=== PATIENT | male | born 1970 ===

== ENCOUNTER 2022-01-29 19:33 | Emergency (ER) | payer OTHER, SELFPAY ==
--- NOTE | 2022-01-29 19:30 | DI.CT_ITS ---
Exam(s) CT CHEST/ABD/PEL W CT THORACIC LUMBAR SPINE REC EXAM: CT CHEST/ABD/PEL W TECHNIQUE: CT examination of the chest, abdomen, and pelvis was performed with bolus infusion of 100 cc of Omnipaque 350. Additional thoracic and lumbar spine bony reconstructions were also obtained. COMPARISON: CT CT THORACIC LUMBAR SPINE REC from 01/29/2022 FINDINGS: There is no evidence of a thoracic vascular injury. The lungs are clear. No pneumothorax or pleural effusion. No mediastinal hematoma. No adenopathy in the chest. Tracheobronchial tree appears intact. Note is made of a prior sternotomy and surgery involving the proximal pulmonary artery which is marke dly dilated. Please correlate with surgical history. The liver, spleen, and pancreas appear normal. Gallbladder and bile ducts are normal. Adrenals and kidneys are unremarkable. No evidence of urinary tract injury or obstruction. No abdominal or pelvic vascular injury seen. No abdominal or pelvic adenopathy. No significant abdomi nal wall hernia or hematoma. No evidence of bowel injury. No fracture identified in the region surveyed. IMPRESSION: No evidence of acute injury of the chest, abdomen, or pelvis. RADIATION DOSE DELIVERED: Total DLP Total DLP !Error CTDIvol DATA REPOSITORY: All CT scans at this facility are submitted to the National Radiology Data Registry (NRDR) Dose Index Registry (DIR) with the [employer] (A[employer]). RADIATION OPTIMIZATION: All CT scans at this facility use at least one of these dose optimization te chniques: automated exposure control; mA and/or kV adjustment per patient size (includes targeted exa ms where dose is matched to clinical indication); or iterative reconstruction.
[2022-01-29 19:41] VITALS: BP 133/84; PULSE 85; RESP 14; TEMP 37; O2SAT 96
--- NOTE | 2022-01-29 19:44 | DI.CT_ITS ---
Exam(s) CT HEAD CERV SPINE FACIAL WO EXAM: CT HEAD CERV SPINE FACIAL WO COMPARISON: No exams were available for comparison FINDINGS: CT examination of the cervical spine was performed without contrast administration. There is minimal loss of height and deformity C4 vertebral body which may represent old minimal anter ior compression fracture. No involvement of posterior elements. There is some loss of height of C7 vertebral body, this is of uncertain age in the possibility of acute fracture is not excluded. Howev er, the configuration of posterior endplate hypertrophic changes would suggest this is an old injury. Additional evaluation with MR could be obtained to assess acute marrow edema. Slight posterior def ormity of C7 cortex is noted, 2-3 millimeter posterior bulges present. Widely patent spinal canal no wally period. Intervertebral disc spaces are well maintained. Tracheolaryngeal structures appear intact. No cervical mass or adenopathy. Noncontrast cranial CT was performed. Ventricular system is normal in appearance. No evidence of acute intracranial hemorrhage, mass effect, or midline shift. No calvarial fracture. The orbital and temporal bone structures appear intact. CT examination of the maxillofacial region was also performed. There is a minimally displaced nasal fracture. There is a moderately displaced comminuted fracture involving the inferior and medial wall s of the left orbit. No intraconal hematoma. Mild hemorrhage in left maxillary and ethmoid sinuses. No additional facial or sinus fracture identified. Mandible a tear appears intact as visualized. IMPRESSION: C7 vertebral body deformity, acute versus old, additional evaluation with MRI may be obtained if clin ically indicated to assess acute marrow edema and further evaluate the spinal canal.. No evidence of acute intracranial injury. Orbital floor/medial orbital fracture, no evidence of intraconal hematoma, entrapment, or other soft tissue injury. RADIATION DOSE DELIVERED: 2,036.81mGy.cm Total DLP 2,036.81mGy.cm Total DLP !Error CTDIvol DATA REPOSITORY: All CT scans at this facility are submitted to the National Radiology Data Registry (NRDR) Dose Index Registry (DIR) with the [employer] (ACR). RADIATION OPTIMIZATION: All CT scans at this facility use at least one of these dose optimization te chniques: automated exposure control; mA and/or kV adjustment per patient size (includes targeted exa ms where dose is matched to clinical indication); or iterative reconstruction.
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
[2022-01-29 20:00] VITALS: BP 133/83; PULSE 82; RESP 18; O2SAT 96
[2022-01-29] MEDS: HYDROmorphone 2 MG/ML VIAL 1 MG IVP (20:17)
[2022-01-29] MEDS: Normal Saline 1,000 ML 1000 ML IV (20:17)
[2022-01-29] MEDS: Ondansetron 4 MG/2 ML VIAL IVP ×2 (20:17→23:09)
[2022-01-29 20:20] VITALS: BP 132/78; PULSE 88; RESP 16; O2SAT 96
[2022-01-29 20:29] LABS: Abs Immature Grans 0.05 10^3/uL (0.0-0.06); Absolute Basophil Count 0.03 10^3/uL (0.0-0.2); Absolute Eosinophil Count 0.06 10^3/uL (0.0-0.7); Absolute Lymphocyte Count 1.37 10^3/uL (1.2-3.4); Basophils % 0.3; Eosinophils % 0.5; HCT 47.4 % (40.0-50.0); HGB 16.5 g/dL (13.5-17.5); Immature Grans % 0.4; Lymphocytes % 12.1; MCHC 34.8 % (32.0-36.0); MCV 84 fL (80-95); MPV 9.7 fL (8.0-11.0); Monocytes % 4.8; Neutrophils % 81.9; Platelet Count 266 10^3/uL (130-400); RBC 5.68 10^6/uL (4.36-5.78); RDW 11.5 % (11.8-14.1); RDW-SD 34.4 fL; WBC 11.35 10^3/uL (4.4-10.8)
[2022-01-29 20:30] VITALS: BP 138/79; PULSE 94
[2022-01-29 20:32] LABS: Absolute Monocyte Count 0.54 10^3/uL (0.1-0.8)
[2022-01-29 20:46] LABS: ALT 30 U/L (16-63); AST 23 U/L (15-37); Albumin 4.7 g/dL (3.4-5.0); Alkaline Phosphatase 71 U/L (46-116); BUN 15 mg/dL (7-18); Bilirubin, Total 0.5 mg/dL (0.2-1.0); CREATININE 0.8 mg/dL (0.70-1.30); Chloride 104 mmol/L (98-107); Glucose 91 mg/dL (74-106); Magnesium 2.2 mg/dL (1.8-2.4); Potassium 3.7 mmol/L (3.5-5.1); Sodium 141 mmol/L (136-145); Total Protein 8.3 g/dL (6.4-8.2)
[2022-01-29] MEDS: Omnipaque 350 MG/ML 100 ML BTL IJ (21:06)
--- NOTE | 2022-01-29 21:15 | DI.VRAD_ITS ---
PROCEDURE INFORMATION: Exam: CT Head Without Contrast Exam date and time: 01/29/2022 8:42 PM Age: 51 years old Clinical indication: Injury or trauma; Fall; Patient HX: Trauma, headache and upper cspine pain TECHNIQUE: Imaging protocol: Computed tomography of the head without contrast. COMPARISON: No relevant prior studies available. FINDINGS: Brain: There is no acute intracranial hemorrhage, mass effect or midline shift. There is no large acute territorial cerebral infarct. Cerebral ventricles: No ventriculomegaly. Paranasal sinuses: Hyperdense fluid noted in the left maxillary sinus. Mastoid air cells: Visualized mastoid air cells are well aerated. Bones/joints: No acute calvarial fracture. Soft tissues: No significant subcutaneous soft tissue abnormality. IMPRESSION: No acute intracranial hemorrhage, mass effect or midline shift. PROCEDURE INFORMATION: Exam: CT Maxillofacial Without Contrast Exam date and time: 01/29/2022 8:42 PM Age: 51 years old Clinical indication: Injury or trauma; Fall; Patient HX: Trauma, headache and upper cspine pain TECHNIQUE: Imaging protocol: Computed tomography of the of the face without contrast. COMPARISON: No relevant prior studies available. FINDINGS: Orbital cavities: A small amount of hematoma is seen at the inferior orbit adjacent to the orbital floor fracture. Bones/joints: There is an inferiorly displaced fracture of the floor of the left orbit, involving the left infraorbital canal. There is a subtle fracture involving the medial wall of the left ethmoid sinus (image 65, series 12). Paranasal sinuses: Hyperdense fluid noted in the left maxillary sinus and within the left ethmoid sinus. Soft tissues: Unremarkable. IMPRESSION: 1. Left orbital floor fracture with associated hematoma in the left maxillary and left ethmoid sinuses. Also small hematoma in the inferior left orbit. 2. Mild fracture at the medial wall of the left ethmoid sinus. PROCEDURE INFORMATION: Exam: CT Cervical Spine Without Contrast Exam date and time: 01/29/2022 8:42 PM Age: 51 years old Clinical indication: Injury or trauma; Fall; Patient HX: Trauma, headache and upper cspine pain TECHNIQUE: Imaging protocol: Computed tomography of the cervical spine without contrast. COMPARISON: No relevant prior studies available. FINDINGS: Bones/joints: There is significant decreased height seen in the C7 vertebral body, which could be secondary to acute or chronic fracture. Decreased height also noted in the C4 vertebral body, likely secondary to degenerative Schmorl's node formation. Discs/Spinal canal/Neural foramina: No significant disc protrusion. No severe spinal canal stenosis. Bilateral neural foraminal narrowing noted secondary to degenerative disc disease.. Lungs: Apical scarring noted in the bilateral lungs. Soft tissues: Unremarkable. IMPRESSION: Decreased height of the C7 vertebral body, which could represent acute or chronic fracture. Compare with prior imaging and clinical history. No evidence of spinal canal stenosis. Dictated and Authenticated by: Bridgett Parks MD. Ordering:SHEILA Sawant MD
--- NOTE | 2022-01-29 21:23 | DI.VRAD_ITS ---
PROCEDURE INFORMATION: Exam: CT Chest With Contrast; Diagnostic Exam date and time: 01/29/2022 8:54 PM Age: 51 years old Clinical indication: Other: Trauma TECHNIQUE: Imaging protocol: Diagnostic computed tomography of the chest with contrast. Contrast material: 350; Contrast volume: 100 ml; Contrast route: INTRAVENOUS (IV); COMPARISON: CT HEAD CERV SPINE FACIAL WO 01/29/2022 8:42 PM FINDINGS: Lungs: No acute lung consolidation. Right apical scarring. Pleural spaces: No pleural effusion. No pneumothorax. Heart: Moderate cardiac enlargement. Atypical pulmonary artery outflow tract with surgical clips. Recommend clinical correlation. This may represent surgical repair of a congenital cardiac anomaly. Possible prosthetic pulmonary valve. [id number] coronary artery atherosclerotic calcium. No pericardial effusion. Lymph nodes: Unremarkable. No enlarged lymph nodes. Vasculature: Thoracic aorta is normal in course and caliber. No traumatic disruption. Bones/joints: No thoracic skeletal injury evident. No fractures. Previous median sternotomy. Soft tissues: Unremarkable. IMPRESSION: 1. No traumatic changes to the chest. 2. Cardiomegaly. Atypical pulmonary artery outflow tract with surgical changes. Recommend clinical correlation. 3. No pleural effusion. No pneumothorax. No acute lung consolidation. 4. No skeletal disruption evident. PROCEDURE INFORMATION: Exam: CT Abdomen And Pelvis With Contrast Exam date and time: 01/29/2022 8:54 PM Age: 51 years old Clinical indication: Other: Trauma TECHNIQUE: Imaging protocol: Computed tomography of the abdomen and pelvis with contrast. Contrast material: 350; Contrast volume: 100 ml; Contrast route: INTRAVENOUS (IV); COMPARISON: No relevant prior studies available. FINDINGS: Liver: Diffuse moderate fatty liver change. No focal hepatic pathology. Gallbladder and bile ducts: The gallbladder is normal in size and shape. No stones or inflammatory changes. Pancreas: Normal. No ductal dilation. Spleen: The spleen is normal in size, contour and attenuation. Adrenal glands: The adrenal glands are normal in size and contour bilaterally. Kidneys and ureters: No acute renal pathology. Lateral left renal 10 mm parenchymal cyst with benign appearance. No further imaging follow-up recommended based on MIPS criteria. Stomach and bowel: Gastric morphology is unremarkable. No edema. No gastric outlet obstruction. Small hiatal hernia. No acute features.Small bowel loops are normal in course and caliber. There is no mucosal edema or bowel wall thickening. No obstructive features.The colon contains formed fecal material. There is no bowel wall thickening. No inflammatory features. No obstruction. Appendix: No evidence of appendicitis. Intraperitoneal space: No free fluid or free air. Vasculature: Unremarkable. No abdominal aortic aneurysm. Lymph nodes: Unremarkable. No enlarged lymph nodes. Urinary bladder: Urinary bladder is unremarkable in appearance. No wall thickening. No intravesicular calculi. No intravesicular gas. Reproductive: Unremarkable as visualized. Bones/joints: Mild degenerative lumbar spine disease. No fractures of the lumbar spine, pelvis, or proximal femurs. Soft tissues: Unremarkable. IMPRESSION: 1. No visceral injury to the abdomen or pelvis. 2. Fatty liver change. 3. No free fluid or free air. Dictated and Authenticated by: Tai Love MD. Ordering:SHEILA Sawant MD
[2022-01-29 21:32] LABS: Bilirubin Negative (Negative); Blood Trace-intact (Negative); Clarity Clear (Clear); Glucose Negative (Negative); Ketones 15 mg/dL (Negative); Leukocyte Esterase Negative (Negative); Nitrite Negative (Negative); Specific Gravity 1.015 (1.005-1.025); Urobilinogen 0.2 EU/dL (Up TO 0.2)
--- NOTE | 2022-01-29 21:33 | DI.VRAD_ITS ---
PROCEDURE INFORMATION: Exam: CT Thoracic Spine Without Contrast Exam date and time: 01/29/2022 8:54 PM Age: 51 years old Clinical indication: Other: Trauma TECHNIQUE: Imaging protocol: Computed tomography of the thoracic spine without contrast. COMPARISON: CT HEAD CERV SPINE FACIAL WO 01/29/2022 8:42 PM FINDINGS: Bones/joints: Degenerative thoracic spine disease. Multilevel degenerative disc and facet disease. No fracture. No dislocation. No suspicious bone changes. Discs/Spinal canal/Neural foramina: No features of thoracic level spinal stenosis or foraminal stenosis. Soft tissues: Paravertebral soft tissues are unremarkable. IMPRESSION: 1. No acute traumatic disruption. 2. Degenerative thoracic spine change. PROCEDURE INFORMATION: Exam: CT Lumbar Spine Without Contrast Exam date and time: 01/29/2022 8:54 PM Age: 51 years old Clinical indication: Other: Trauma TECHNIQUE: Imaging protocol: Computed tomography of the lumbar spine without contrast. COMPARISON: No relevant prior studies available. FINDINGS: Bones/joints: Lumbar spine with mild degenerative disc and joint disease. No traumatic disruption. No fracture. No dislocation. Discs/Spinal canal/Neural foramina: No significant disc bulge. No features of spinal stenosis or foraminal stenosis. Soft tissues: Paravertebral soft tissues are unremarkable. IMPRESSION: Degenerative lumbar spine changes of mild to moderate severity. No acute fracture or dislocation. Dictated and Authenticated by: Tai Love MD. Ordering:SHEILA Sawant MD
[2022-01-29 21:43] LABS: WBC 0-2 HPF (0-5)
[2022-01-29 21:44] LABS: Bacteria Negative HPF (Negative); C & S Indicated? No; Casts Negative LPF (Negative); Crystals Negative HPF (Negative); Epithelial Cells Negative HPF (Negative); Mucus Negative (Negative); Other Cells Negative (Negative); RBC Negative HPF (0-2)
[2022-01-29] MEDS: ACETAMINOPHEN 1,000 MG/100 ML BTL 400 MG IVPB (21:52)
[2022-01-29 22:34] VITALS: BP 123/72; PULSE 83; RESP 12; TEMP 36.7; O2SAT 96
--- NOTE | 2022-01-29 22:56 | NUR.NOTE ---
referral to Care Management to refer to [facility] for Spinal Injury/R occipital fracture and ENT for Orbital floor fx. Case discussed with [facility].Nursing Note:
--- NOTE | 2022-01-29 23:00 | DI.RAD_ITS ---
Exam(s) XR CERVICAL SP ROWE TRAUMA 2-3V EXAM: XR CERVICAL SP ROWE TRAUMA 2-3V CLINICAL HISTORY: Occipital fracture requested imaging AP and latera TECHNIQUE: COMPARISON: No exams were available for comparison FINDINGS: Two views were obtained. Minimal deformity of C4 vertebral body noted as seen on CT, please see CT d ictation. C7 deformity identified on CT is not clearly visualized on this limited radiographic series. If ther e is an attempt to differentiate acute from old fracture, additional evaluation with cervical spine M RI would be recommended. IMPRESSION: RADIATION DOSE DELIVERED: Total DLP
--- NOTE | 2022-01-29 23:39 | DI.VRAD_ITS ---
PROCEDURE INFORMATION: Exam: XR Cervical Spine Exam date and time: 01/29/2022 11:25 PM Age: 51 years old Clinical indication: Other: Trauma TECHNIQUE: Imaging protocol: Radiologic exam of the cervical spine. Views: 2 or 3 views. COMPARISON: CT HEAD CERV SPINE FACIAL WO 01/29/2022 8:42 PM FINDINGS: Bones/joints: Lateral view shows C1 through the C5-C6 level. There is mild loss of height at C4 and C5. On review of earlier CT, these appear to represent chronic changes. There is no malalignment evident. Soft tissues: Paravertebral soft tissues are unremarkable. IMPRESSION: 1. Mild loss of height at C4 and C5 appear to represent chronic areas of compression. Compared with previous CT from earlier this evening. 2. Lateral view includes C1 through the C5-C6 level. C6 and C7 vertebral bodies are not imaged on lateral view. 3. Paravertebral soft tissues are unremarkable. 4. If there is concern for occult cervical spine fractures, an MRI would provide greater sensitivity in evaluating for bone edema. Dictated and Authenticated by: Tai Love MD. Ordering:SHEILA Sawant MD
[2022-01-29] MEDS: Ondansetron O.D.T. 4 MG TABEF, 3 TABS/BTL PO (23:51)
[2022-01-30 00:03] VITALS: BP 115/75; PULSE 64; RESP 14; TEMP 36.7; O2SAT 96
--- NOTE | 2022-01-31 10:26 | PDOC.ERCMACT ---
- If Service Date Differs Date of service: 01/31/22 Time of Service: 10:26 Care Management Activity Note Yao is seen in the ED for a cervical muscle strain, fracture of occipital condyle, and orbital floor fracture. At the request of ED provider, CM coordinates referrals to [facility] and to [facility] to assist Yao in obtaining follow up outpatient appointments for further evaluation and treatment.
--- NOTE | 2022-02-01 11:51 | NUR.NOTE ---
Patient called the ER after speaking with Angle earlier, he called the spine clinic to see if a referral had been made after his ER visit on 01/29 w/NBereket Betancur and the spine clinic at [facility] did not have any record of the request. I told the patient i would have case management look into it, CLB
== END 2022-01-30 00:10 | disposition home or self-care (01) ==
PROVIDERS: Emergency Provider Nurse Practitioner Family
DX: S02.11GA Other fracture of occiput, right side, initial encounter for closed fracture (principal); S02.32XA Fracture of orbital floor, left side, initial encounter for closed fracture; S16.1XXA Strain of muscle, fascia and tendon at neck level, initial encounter; V86.56XA Driver of dirt bike or motor/cross bike injured in nontraffic accident, initial encounter; S29.8XXA Other specified injuries of thorax, initial encounter; S02.5XXA Fracture of tooth (traumatic), initial encounter for closed fracture
CPT/HCPCS: 36415; 74177; 80053; 96361; 96365; 96375; 96376; 99285; 70450; 70486; 71260; 72040; 72125; 81003; 81015; 83735; 85025; J0131; J2405; J3490